=== PATIENT | female | born 1980 ===

== ENCOUNTER 2021-12-09 08:16 | Observation (INO) | payer OTHER, MEDICAID, SELFPAY ==
--- NOTE | 2021-12-09 08:20 | DI.RAD.S_ITS ---
PROCEDURE: XR CHEST 1V INDICATIONS: chest pain TECHNIQUE: One view of the chest was acquired. COMPARISON: None. FINDINGS: Surgical changes and devices: None. Lungs and pleura: Low lung volumes are noted. This causes a crowded appearance to the lung markings and limits evaluation. Generalized interstitial prominence can be seen. No pneumothorax or pleural effusions are seen. Mediastinum: Mediastinal contours appear normal. Heart size is normal. Bones and chest wall: No suspicious bony lesions. Overlying soft tissues appear unremarkable. IMPRESSION: Low lung volumes with mild generalized interstitial prominence. Differential diagnosis includes pulmonary edema or atypical/viral infiltrate. However, artifact from the low lung volumes is also possible. If clinically appropriate, a short-term followup chest series (with PA and lateral views) performed in deep inspiration is suggested for further evaluation. Dictated by: Rick Read M.D. on 12/09/2021 at 8:40 Approved by: Rick Read M.D. on 12/09/2021 at 8:41
[2021-12-09 08:25] VITALS: BP 168/94; PULSE 90; RESP 20; TEMP 36.8; O2SAT 98; BMI 42.0
[2021-12-09 08:54] LABS: Add Manual Diff / Slide Review NO; Basophils Absolute Auto 100 /uL (0-100); Basophils Percent Auto 0.6 % (0-2); Eosinophils Absolute Auto 300 /uL (0-450); Eosinophils Percent Auto 2.9 % (2-4); Hematocrit 43.6 % (36-46); Hemoglobin 14.6 g/dL (12.0-16.0); Lymphocytes Absolute Auto 2600 /uL (1100-4500); Lymphocytes Percent Auto 27.9 % (25-40); Mean Corpuscular HGB Conc 33.5 % (30-36); Mean Corpuscular Hemoglobin 28.1 PG (26-34); Mean Corpuscular Volume 83.6 fL (80-100); Monocytes Absolute Auto 700 /uL (0-900); Monocytes Percent Auto 7.2 % (3-14); Neutrophils Absolute Auto 5800 /uL (1500-7000); Neutrophils Percent Auto 61.4 % (50-75); Platelet Count 264 X10^3/uL (150-400); Red Blood Cell Count 5.21 X10^6/uL (4.0-5.2); White Blood Cell Count 9.4 X10^3/uL (4.5-11.0)
--- NOTE | 2021-12-09 08:54 | ED.CHESTPAIN ---
HPI - Chest Pain General Chief Complaint: Chest Pain Stated Complaint: Heart pains Time Seen by Provider: 12/09/21 08:36 Source: patient Mode of arrival: Ambulatory Limitations: no limitations History of Present Illness HPI narrative: Patient here for non reproducible left-sided chest pain that is sharp 10/10 lasting about 10-15 minutes at midnight last night. No complaints or discomfort at this time. Patient seen by her primary care doctor 2 days ago for the same complaint. Has not heard back because she is supposed to be scheduled for a stress echo test. Never had cardiac workup in the past. Ongoing symptoms for the past 2 years. Strong family history of coronary disease. Patient does smoke. Has history of hypertension and diabetes. Related Data Home Medications Medication Instructions Recorded Confirmed aspirin 81 mg tablet,delayed 81 mg DAILY 12/09/21 12/09/21 release atorvastatin 20 mg tablet 20 mg DAILY 12/09/21 12/09/21 glipizide 10 mg tablet 10 mg DAILY 12/09/21 12/09/21 insulin glargine 100 unit/mL (3 80 unit SUBCUT DAILY 12/09/21 12/09/21 mL) subcutaneous pen (Lantus Solostar U-100 Insulin) losartan 100 mg tablet 100 mg DAILY 12/09/21 12/09/21 meloxicam 15 mg tablet 15 mg DAILY 12/09/21 12/09/21 metformin 1,000 mg tablet 1,000 mg BID 12/09/21 12/09/21 omeprazole 20 mg capsule,delayed 20 mg DAILY 12/09/21 12/09/21 release Allergies Allergy/AdvReac Type Severity Reaction Status Date / Time No Known Drug Allergies Allergy Verified 12/09/21 08:38 Review of Systems Review of Systems Narrative: GENERAL: Denies chills, fatigue, malaise, fever, sweats. HEENT: Denies sinus pain, ear pain, sore throat RESPIRATORY: Denies dyspnea, cough CARDIOVASCULAR: Positive for chest pain, palpitations GASTROINTESTINAL: Denies nausea, vomiting, abdominal pain : Denies dysuria, frequency, hematuria MUSCULOSKELETAL: denies muscle or bony pain SKIN: Denies rash, skin lesions NEUROLOGIC: Denies weakness, numbness ROS Unobtainable: All systems reviewed & are unremarkable except as noted in HPI and below Patient History Social History household members: spouse and children Smoking Status: Current every day smoker Smoking Status: Current every day smoker alcohol intake frequency: holidays/special occasions only Substance Use Type: does not use Exam Narrative Exam Narrative: GENERAL: in no distress, not toxic not dyspneic HEAD: Normocephalic. EYES: Pupils equal round No scleral icterus. ENT: Mucous membranes moist. NECK: Trachea midline. CARDIOVASCULAR: Regular rate and rhythm without murmurs RESPIRATORY: Clear to auscultation. Breath sounds equal bilaterally. No wheezes, rales, or rhonchi. GASTROINTESTINAL: Abdomen soft, non-tender EXTREMITIES: No gross deformities. BACK: No flank tenderness. NEURO: AOx4. SKIN: Warm and dry PSYCH: Not anxious, is cooperative Initial Vital Signs Initial Vital Signs: Vital Signs Temperature 98.2 F 12/09/21 08:25 Pulse Rate 90 12/09/21 08:25 Respiratory Rate 20 12/09/21 08:25 Blood Pressure 168/94 H 12/09/21 08:25 Pulse Oximetry 98 12/09/21 08:25 Course Course Course Narrative: No new issues during course of stay Decision to Admit Date: 12/09/21 Decision to Admit time: 10:49 Orders Ordered: ED Orders 12/09/21 08:20 XR chest 1V Stat 12/09/21 08:30 EKG-12 Lead Stat 12/09/21 08:40 Complete Blood Count AUTO DIFF Stat Comprehensive Metabolic Panel Stat Lipase Stat Magnesium Stat Test Serum,Qual Stat Troponin & CK Cardiac Panel Stat 12/09/21 09:40 COVID19 -Nasal swab/Pre-Proc Stat 12/09/21 11:15 Trop I [Troponin I] Stat Aspirin (Aspirin Ec 81 Mg Tablet) 81 mg PO DAILY HARRY Atorvastatin Calcium (Atorvastatin 20 Mg Tablet) 40 mg PO DAILY PENDING SALE TO [facility] Dextrose (Dextrose 50 % In Water 25 Gm/50 Ml Syringe) 25 gm IV PRN PRN PRN Reason: Hypoglycemia Enoxaparin Sodium (Enoxaparin 40 Mg/0.4 Ml Syringe) 40 mg SUBCUT BID PENDING SALE TO [facility] Magnesium Sulfate (Magnesium Sulfate) 4 gm in 100 mls @ 25 mls/hr IV NOW ONE Stop: 12/09/21 18:09 Insulin Glargine (Insulin Glargine 100 Unit/Ml 3ml Pen) 60 unit SUBCUT DAILY PENDING SALE TO [facility] Insulin Human Lispro (Insulin Lispro 100 Unit/Ml 3ml Vial) 0 unit SUBCUT ACHS HARRY; Protocol Losartan Potassium (Losartan 50 Mg Tablet) 100 mg PO DAILY HARRY Pantoprazole Sodium (Pantoprazole Dr 20 Mg Tablet) 20 mg PO DAILY HARRY Discontinued Medications Aspirin (Aspirin 81 Mg Chew Tab) 324 mg PO NOW ONE Stop: 12/09/21 08:55 Last Admin: 12/09/21 09:41 Dose: 324 mg Documented by: KBROTEM Atorvastatin Calcium (Atorvastatin 20 Mg Tablet) 20 mg PO DAILY HARRY Insulin Glargine (Insulin Glargine 100 Unit/Ml 3ml Pen) 80 unit SUBCUT DAILY HARRY Reevaluation(s) Reevaluation #1: Reviewed patient results. Currently chest pain-free. Agrees for admit for stress test. Time: 10:49 Consultations Consultation #1: Spoke with hospitalist, Dr. Gu, will admit Time: 10:56 Vital Signs Vital signs: Vital Signs - 8 hr 12/09/21 08:25 Temperature 98.2 F Pulse Rate 90 Respiratory Rate 20 Blood Pressure 168/94 H Pulse Oximetry 98 MDM - Chest Pain Differential Diagnosis Differential diagnosis: Likely pneumothorax, stable angina, unstable angina pectoris, atypical chest pain, st elevation myocardial infarction and chest pain Lab Data Result diagrams: 12/09/21 08:40 12/09/21 08:40 Labs: Lab Results 12/09/21 12/09/21 12/09/21 Range/Units 08:40 08:40 08:40 WBC 9.4 (4.5-11.0) X10^3/uL RBC 5.21 H (4.0-5.2) X10^6/uL Hgb 14.6 (12.0-16.0) g/dL Hct 43.6 (36-46) % MCV 83.6 (80-100) fL MCH 28.1 (26-34) PG MCHC 33.5 (30-36) % RDW 13.0 (11.6-14.8) % Plt Count 264 (150-400) X10^3/uL Neut % (Auto) 61.4 (50-75) % Lymph % (Auto) 27.9 (25-40) % Hawkins % (Auto) 7.2 (3-14) % Eos % (Auto) 2.9 (2-4) % Baso % (Auto) 0.6 (0-2) % Neut # (Auto) 5800 (5848-9911) /uL Lymph # (Auto) 2600 (7116-1210) /uL Hawkins # (Auto) 700 (0-900) /uL Eos # (Auto) 300 (0-450) /uL Baso # (Auto) 100 (0-100) /uL Sodium 136 L (137-145) mmol/L Potassium 4.0 (3.4-5.1) mmol/L Chloride 102 (98-107) mmol/L Carbon Dioxide 26 (22-32) mmol/L BUN 14 (7-17) mg/dL Creatinine 0.37 L (0.52-1.04) mg/dL Estimated GFR > 60.0 (>60) mL/min BUN/Creatinine Ratio 37.8 H (6-22) Glucose 250 H (70-100) mg/dL Calcium 9.2 (8.4-10.2) mg/dL Magnesium 1.5 L (1.6-2.3) mg/dL Total Bilirubin 0.5 (0.2-1.3) mg/dL AST 17 (14-36) IU/L ALT 14 (<35) IU/L Alkaline Phosphatase 73 (38-126) U/L Total Creatine Kinase 48 (30-135) U/L CK-MB (CK-2) TNP CK-MB (CK-2) Rel Index TNP Troponin I < 0.012 (0.01-0.034) ng/mL Total Protein 7.5 (6.3-8.2) g/dL Albumin 4.4 (3.5-5.0) g/dL Globulin 3.1 (1.7-4.1) g/dL Albumin/Globulin Ratio 1.4 (1.0-2.8) Lipase 41 (23-300) U/L Serum , Qual Negative (Negative) SARS-CoV-2 (PCR) (Negative) 12/09/21 12/09/21 Range/Units 09:40 11:15 WBC (4.5-11.0) X10^3/uL RBC (4.0-5.2) X10^6/uL Hgb (12.0-16.0) g/dL Hct (36-46) % MCV (80-100) fL MCH (26-34) PG MCHC (30-36) % RDW (11.6-14.8) % Plt Count (150-400) X10^3/uL Neut % (Auto) (50-75) % Lymph % (Auto) (25-40) % Hawkins % (Auto) (3-14) % Eos % (Auto) (2-4) % Baso % (Auto) (0-2) % Neut # (Auto) (9282-3112) /uL Lymph # (Auto) (7778-3718) /uL Hawkins # (Auto) (0-900) /uL Eos # (Auto) (0-450) /uL Baso # (Auto) (0-100) /uL Sodium (137-145) mmol/L Potassium (3.4-5.1) mmol/L Chloride (98-107) mmol/L Carbon Dioxide (22-32) mmol/L BUN (7-17) mg/dL Creatinine (0.52-1.04) mg/dL Estimated GFR (>60) mL/min BUN/Creatinine Ratio (6-22) Glucose (70-100) mg/dL Calcium (8.4-10.2) mg/dL Magnesium (1.6-2.3) mg/dL Total Bilirubin (0.2-1.3) mg/dL AST (14-36) IU/L ALT (<35) IU/L Alkaline Phosphatase (38-126) U/L Total Creatine Kinase (30-135) U/L CK-MB (CK-2) CK-MB (CK-2) Rel Index Troponin I < 0.012 (0.01-0.034) ng/mL Total Protein (6.3-8.2) g/dL Albumin (3.5-5.0) g/dL Globulin (1.7-4.1) g/dL Albumin/Globulin Ratio (1.0-2.8) Lipase (23-300) U/L Serum , Qual (Negative) SARS-CoV-2 (PCR) Negative (Negative) Imaging Data Chest x-ray: Radiologist's Impression: [address] [address] XRay Report Signed Patient: Delmy Shukla MR#: [id number] : 1980 Acct:[id number] Age/Sex: 41 / F Date of Service: 12/09/21 Loc: ED Accession Number: [id number] ?? Procedure: XR chest 1V Ordering Provider: Ganga Alvarez MD PROCEDURE:? XR CHEST 1V ? INDICATIONS:? chest pain ? TECHNIQUE:? One view of the chest was acquired.? ? COMPARISON:? None. ? FINDINGS:? ? Surgical changes and devices:? None.? ? Lungs and pleura:? Low lung volumes are noted. This causes a crowded appearance to the lung markings and limits evaluation.? Generalized interstitial prominence can be seen. No pneumothorax or pleural effusions are seen. ? Mediastinum:? Mediastinal contours appear normal.? Heart size is normal.? ? Bones and chest wall:? No suspicious bony lesions.? Overlying soft tissues appear unremarkable.? ? ? IMPRESSION:? Low lung volumes with mild generalized interstitial prominence.? Differential diagnosis includes pulmonary edema or atypical/viral infiltrate.? However, artifact from the low lung volumes is also possible. ? If clinically appropriate, a short-term followup chest series (with PA and lateral views) performed in deep inspiration is suggested for further evaluation.? Dictated by: Rick Read M.D. on 12/09/2021 at 8:40 ? ? Approved by: Rick Read M.D. on 12/09/2021 at 8:41 ? ECG Data Interpretation: Normal sinus rhythm rate [address] elevation or depression MDM Narrative Medical decision making narrative: Appropriate for admission. Patient has had increased frequency of left-sided chest pain. Patient is diabetic with high blood pressure as well as is a smoker with family history of coronary disease. Has seen family doctor 2 days ago and has not received schedule for her stress test. Discharge Plan Departure Patient Disposition: Admitted as Observation Clinical Impression: Chest pain Admit Date/Time: 12/09/21 11:15 Admit Provider: Phu Gu
[2021-12-09 09:04] LABS: Alanine Aminotransferase 14 IU/L (<35); Albumin 4.4 g/dL (3.5-5.0); Albumin Globulin Ratio 1.4 (1.0-2.8); Alkaline Phosphatase 73 U/L (38-126); Aspartate Aminotransferase 17 IU/L (14-36); BUN Creatinine Ratio 37.8 (6-22); Bilirubin Total 0.5 mg/dL (0.2-1.3); Blood Urea Nitrogen 14 mg/dL (7-17); Calcium 9.2 mg/dL (8.4-10.2); Carbon Dioxide 26 mmol/L (22-32); Chloride 102 mmol/L (98-107); Creatine Kinase 48 U/L (30-135); Estimated Glomerular Filt Rate > 60.0 mL/min (>60); Globulin 3.1 g/dL (1.7-4.1); Glucose 250 mg/dL (70-100); HEMOLYSIS < 15 (0-50); Lipase 41 U/L (23-300); Magnesium 1.5 mg/dL (1.6-2.3); Sodium 136 mmol/L (137-145); Total Protein 7.5 g/dL (6.3-8.2)
[2021-12-09 09:16] LABS: Troponin I < 0.012 ng/mL (0.01-0.034)
[2021-12-09 09:40] LABS: Pregnancy Test Serum,Qual Negative (Negative)
[2021-12-09] MEDS: ASPIRIN 81 MG CHEW TAB 324 MG PO (09:41)
[2021-12-09 10:22] LABS: COVID19 -Nasal RAPID Negative (Negative)
[2021-12-09 11:57] LABS: Troponin I < 0.012 ng/mL (0.01-0.034)
[2021-12-09 12:27] VITALS: BMI 41.8
--- NOTE | 2021-12-09 13:14 | PC.NURSE ---
Patient arrived to AC via wheelchair with Charge Nurse assist. MD aware patient has arrived. VSS. Lungs CTA RA, patient denies chest pain at this time, denies SOB. Tele on. ICU aware. Patient denies dizziness, lightheadedness or severe headache. Reports intermittent headache that has subsided with ASA given in the ER. Patients CBG 188. Patient remains NPO, awaiting MD orders. Patient instructed to call before getting OOB. Agreeable to plan. Call light and belongings in reach. Patient denies further needs at this time.
--- NOTE | 2021-12-09 14:15 | PM.HP.1 ---
History of Present Illness History of Present Illness Chief complaint: Heart pains Narrative: 41yo female with a hx of hypertension, insulin-dependent DM II, chronic tobacco smoking history and family hx of premature CAD that presents with chest pain. The patient states this has been intermittent for at least 1 year. She has been working with her PCP to arrange outpatient echo with stress test. However, she's been having insurance issues, complicating scheduling. This presenting CP started last night. She reports she was having an emotional argument with her about finances when this started. It lasted for approximately 10 minutes. She describes it as a sharp, stabbing pain. She localizes it to the left chest wall. She denies this occurs with rest. She does not endorse radiation of the pain to her left arm or jaw. She denies paresthesias, n/v at the time, diaphoresis, back pain, SOB, palpitations, or feeling faint. She reports going to sleep afterward without difficulty. However, this morning, when she was driving to work, she felt the same CP again, also after an argument with her . This is when she decided to drive to the ER. The patient denies any recent trauma to the chest or falls. She denies any recent URI. Denies any hx of VTE/PE or of recent long distance travel. The patient was diagnosed with DM II 5 years ago. She has been on insulin therapy for approximately 1 year. She has been smoking 0.5 ppd tobacco since age 16. Denies any illicit drug use, or EtOH use. Family hx is positive for brother who had a heart attack at age 40. Mother and father both had DM II and hypertension. PSH is unremarkable. She does not endorse knowing of any medicine allergies. She works as a caregiver nearby. She lives with her . Patient History Family & Social History Social History: household members spouse,children Prior Living Arrangements House Safety & Behavioral: Feels Safe in Current Yes Environment Been Physically Hurt or No Threatened By a Person Suicidal Ideation Description None Suicide Plan Description No Plan Tobacco & Substance use: Tobacco type cigarettes Smoking Status Current every day smoker alcohol intake frequency holiday/special occasion Substance Use Type does not use Meds Home Medications and Allergies Home Medications Medication Instructions Recorded Confirmed Type aspirin 81 mg tablet,delayed 81 mg DAILY 12/09/21 12/09/21 History release atorvastatin 20 mg tablet 20 mg DAILY 12/09/21 12/09/21 History glipizide 10 mg tablet 10 mg DAILY 12/09/21 12/09/21 History insulin glargine 100 unit/mL (3 80 unit SUBCUT DAILY 12/09/21 12/09/21 History mL) subcutaneous pen (Lantus Solostar U-100 Insulin) losartan 100 mg tablet 100 mg DAILY 12/09/21 12/09/21 History meloxicam 15 mg tablet 15 mg DAILY 12/09/21 12/09/21 History metformin 1,000 mg tablet 1,000 mg BID 12/09/21 12/09/21 History omeprazole 20 mg capsule,delayed 20 mg DAILY 12/09/21 12/09/21 History release Allergies Allergy/AdvReac Type Severity Reaction Status Date / Time No Known Drug Allergies Allergy Verified 12/09/21 08:38 Review of Systems Constitutional Comments: Denies fever/chills, night sweats, weight loss Eyes Comments: Denies vision changes, blurred vision Cardiovascular Comments: Endorses CP. Denies SOB, palpitations, leg edema Respiratory Comments: Denies cough, SOB, wheezing Gastrointestinal Comments: Denies abd pain, n/v/d Integumentary/Breasts Comments: Denies new skin changes Exam Vital Signs (past 8 hours): - 12/09/21 08:25 Temperature 98.2 F Pulse Rate 90 Respiratory Rate 20 Blood Pressure 168/94 H Pulse Oximetry 98 Oxygen Delivery Method Room Air Const Other: Patient sitting up in bed comfortably upon my entering the room, in no apparent acute distress, asking for lunch Eyes Other: No scleral icterus appreciated Neck Other: No carotid bruits noted Chest Other: Chest pain reproducible on left chest wall palpation Resp Other: Lungs clear to auscultation bilaterally Cardio Other: RRR, S1 and S2 heart sounds normal, with no extra heart sounds or murmurs appreciated, no peripheral edema GI Other: Soft, non-distended, non-tender, bowel sounds present Skin Other: No grossly abnormal skin lesions noted Extrem Other: Palpable dorsalis pedis pulses bilaterally Objective Labs Result Diagrams: 12/09/21 08:40 12/09/21 08:40 Labs: Laboratory Results - last 24 hr 12/09/21 12/09/21 12/09/21 08:40 08:40 08:40 WBC 9.4 RBC 5.21 H Hgb 14.6 Hct 43.6 MCV 83.6 MCH 28.1 MCHC 33.5 RDW 13.0 Plt Count 264 Neut % (Auto) 61.4 Lymph % (Auto) 27.9 Reynolds % (Auto) 7.2 Eos % (Auto) 2.9 Baso % (Auto) 0.6 Neut # (Auto) 5800 Lymph # (Auto) 2600 Reynolds # (Auto) 700 Eos # (Auto) 300 Baso # (Auto) 100 Sodium 136 L Potassium 4.0 Chloride 102 Carbon Dioxide 26 BUN 14 Creatinine 0.37 L Estimated GFR > 60.0 BUN/Creatinine Ratio 37.8 H Glucose 250 H Calcium 9.2 Magnesium 1.5 L Total Bilirubin 0.5 AST 17 ALT 14 Alkaline Phosphatase 73 Total Creatine Kinase 48 CK-MB (CK-2) TNP CK-MB (CK-2) Rel Index TNP Troponin I < 0.012 Total Protein 7.5 Albumin 4.4 Globulin 3.1 Albumin/Globulin Ratio 1.4 Lipase 41 Serum , Qual Negative SARS-CoV-2 (PCR) 12/09/21 12/09/21 09:40 11:15 WBC RBC Hgb Hct MCV MCH MCHC RDW Plt Count Neut % (Auto) Lymph % (Auto) Reynolds % (Auto) Eos % (Auto) Baso % (Auto) Neut # (Auto) Lymph # (Auto) Reynolds # (Auto) Eos # (Auto) Baso # (Auto) Sodium Potassium Chloride Carbon Dioxide BUN Creatinine Estimated GFR BUN/Creatinine Ratio Glucose Calcium Magnesium Total Bilirubin AST ALT Alkaline Phosphatase Total Creatine Kinase CK-MB (CK-2) CK-MB (CK-2) Rel Index Troponin I < 0.012 Total Protein Albumin Globulin Albumin/Globulin Ratio Lipase Serum , Qual SARS-CoV-2 (PCR) Negative Assessment & Plan Assessment & Plan narrative: Assessment: 1. Stable angina 2. Insulin-dependent DM II 3. Hypertension 4. Chronic tobacco smoker 5. Obesity, class 3 6. Hypomagnesemia Plan: 1. EKG, troponin three-times unremarkable. However, patient with significant risk factors for obstructive CAD. Therefore, echocardiogram and pharmacologic stress test ordered. Risk stratification with A1c, lipid panel, TSH. 2. Will give home glargine at 60 units today, as patient did not take insulin this morning. Will give regular home dose of glargine 80 units in the morning starting tomorrow. High-intensity sliding scale. 3. Will resume home losartan 100 mg daily. 4. Will hold off on nicotine patch for now as this might confound stress test results. 5. This is adversely affecting all of the patient's comorbidities. Counseling provided. 6. Unclear etiology as of now, and will replenish. VTE prophylaxis: Lovenox 40 mg daily Code: Full I have utilized all available immediate resources to obtain, update, or review the patient's current medications. Time Spent With Patient Critical Care time: I spent a total of [] minutes of critical care time on this patient's care today; this time is exclusive of procedural time. Quality MIPS - Admit I confirm the patient?s Advance Care Plan is present, Code status is documented, Surrogate decision maker is in patient?s record [If Yes, STOP here]: Yes
[2021-12-09 14:46] VITALS: BP 137/89; PULSE 76; RESP 20; TEMP 36.7; O2SAT 97
[2021-12-09] MEDS: ATORVASTATIN 20 MG TABLET 40 MG PO (15:03)
[2021-12-09] MEDS: MAGNESIUM SULFATE 4 GM/100 ML PIGGYBACK IV (15:03)
[2021-12-09] MEDS: ASPIRIN EC 81 MG TABLET PO (15:03)
[2021-12-09] MEDS: INSULIN GLARGINE 100 UNIT/ML 3ML PEN 60 UNIT SUBCUT (15:04)
[2021-12-09 15:05] VITALS: BP 137/89; PULSE 76
[2021-12-09] MEDS: LOSARTAN 50 MG TABLET 100 MG PO (15:05)
[2021-12-09] MEDS: PANTOPRAZOLE DR 20 MG TABLET PO (15:05)
[2021-12-09] MEDS: INSULIN LISPRO 100 UNIT/ML 3ML VIAL SUBCUT ×2 (17:07→21:08)
[2021-12-09 17:43] LABS: Troponin I < 0.012 ng/mL (0.01-0.034)
[2021-12-09 19:00] VITALS: O2SAT 97
[2021-12-09 19:55] VITALS: PULSE 76; RESP 16; O2SAT 97
[2021-12-09 20:50] VITALS: BP 124/74; PULSE 73; RESP 14; TEMP 36.4; O2SAT 99
[2021-12-10] VITALS (7 sets, daily range): BP systolic 106–123; BP diastolic 60–89; PULSE 75–86; RESP 14–18; TEMP 36.4–36.8; O2SAT 96–99
[2021-12-10 05:55] LABS: Hemoglobin A1C% w Est Avg Glu 12.3 % (4.0-6.0)
[2021-12-10 06:01] LABS: BUN Creatinine Ratio 47.1 (6-22); Blood Urea Nitrogen 16 mg/dL (7-17); Calcium 8.6 mg/dL (8.4-10.2); Carbon Dioxide 27 mmol/L (22-32); Chloride 103 mmol/L (98-107); Cholesterol 183 mg/dL (140-199); Estimated Glomerular Filt Rate > 60.0 mL/min (>60); Glucose 198 mg/dL (70-100); HDL Cholesterol 33 mg/dL (40-60); HEMOLYSIS < 15 (0-50); LDL Cholesterol Calculated 99 mg/dL (<100); Magnesium 1.8 mg/dL (1.6-2.3); Potassium 3.9 mmol/L (3.4-5.1); Sodium 137 mmol/L (137-145); Triglycerides 256 mg/dL (35-150)
[2021-12-10 06:31] LABS: TSH w/ Reflex to FT4 1.25 uIU/mL (0.47-4.68)
--- NOTE | 2021-12-10 07:04 | PC.NURSE ---
no chest pain or discomfort thru the NOC. NPO since midnight. ok from Dr wong for patient to remove tele in order to shower. patient declined to shower as she wants to take a long shower.
[2021-12-10] MEDS: LOSARTAN 50 MG TABLET 100 MG PO (08:39)
[2021-12-10] MEDS: ATORVASTATIN 20 MG TABLET 40 MG PO (08:39)
[2021-12-10] MEDS: PANTOPRAZOLE DR 20 MG TABLET PO (08:39)
[2021-12-10] MEDS: ASPIRIN EC 81 MG TABLET PO (08:39)
[2021-12-10] MEDS: ACETAMINOPHEN 325 MG TABLET 650 MG PO (08:40)
[2021-12-10] MEDS: ENOXAPARIN 40 MG/0.4 ML SYRINGE SUBCUT (08:40)
[2021-12-10] MEDS: INSULIN GLARGINE 100 UNIT/ML 3ML PEN 60 UNIT SUBCUT (08:42)
--- NOTE | 2021-12-10 09:58 | PC.NURSE ---
Day shift: Pt off unit for stress test at approx 0930.
--- NOTE | 2021-12-10 10:22 | PC.NURSE ---
Day shift: Pt back from 1st part of stress test at approx 1020. Denies any chest pain. OK to have water but no food yet. Back on tele. Second part of test planned for 1230 today.
--- NOTE | 2021-12-10 12:44 | PC.NURSE ---
Day shift: Pt off unit for 2nd part of stress test. SHINGLE CATCHER notified about being off tele.
--- NOTE | 2021-12-10 13:09 | PM.TREADMILL ---
Cardiac Stress Test Report Referral & Results Indication: chest pain Rest ECG: sinus rhythm Procedure Note: walking andrei Impression: AFTER ANDREI INJ HAD MINIMAL DYPSNEA, NO CHEST DISCOMFORT, BASELINE ECG SINUS RHYTHM; NO SIGNIFICANT ST CHANGES AFTER ANDREI INJ COMPARED TO BASELINE. NO AMINOPH NEEDED. MIBI SCAN PENDING. FIELD COORDINATOR TO REVIEW. .SARITHA NOEL Please note: Actual ECG tracings can be found in the PACS system.
--- NOTE | 2021-12-10 15:12 | CM.DANOTE ---
DCP Brief Assessment Note Patient is a 41 yo female who was admitted on 12/09/21 for Heart Pains. Pt has [employer] and [employer] for insurance and her PCP is Qian Ronquillo. EMR was reviewed. Per MD, pt with hx of diabetes, hypertension, and smokes tobacco at baseline and admitted for Chest Pain r/o. Stress test and Echo ordered and pending results. Per RN, pt has completed both parts of stress test and now awaiting results to be read. No concerns at this time. Pt lives with spouse and family in [place] and mentioned to staff triggering stress of financial state prior to chest pains. Pt independent at baseline. No bedside assessment completed yet today due to triage needs. Plan: SW to follow tomorrow if pt remains in the hospital overnight for d/c planning needs although anticipates likely d/c home tonight pending test results. RUSS De Santiago
[2021-12-10] MEDS: INSULIN LISPRO 100 UNIT/ML 3ML VIAL SUBCUT (16:47)
--- NOTE | 2021-12-10 18:38 | DI.NM.S_ITS ---
DATE OF SERVICE: 12/10/2021 PROCEDURE PERFORMED: Pharmacological perfusion study. INDICATION: Chest pain with underlying diabetes mellitus, hypertension and smoking. RADIOPHARMACEUTICAL: 27.3 millicurie technetium-99m Myoview IV was injected at stress and 11.6 millicurie technetium-99m Myoview IV was injected at rest. CARDIAC STRESS: The patient underwent IV Lexiscan perfusion study under the supervision of an attending staff using standard protocol. The patient remained hemodynamically stable. No chest discomfort. Had minimal dyspnea. Baseline rhythm was sinus. During stress, some nonspecific ST changes, including flattening of inferolateral leads seen. No significant arrhythmias seen. RAW DATA: Breast shadow, as well as increased diaphragmatic shadow seen. There was a hot spot near the inferior border of the heart. GATED STUDY: Resting LV ejection fraction 69 and stress LV ejection fraction is 74 percent without any obvious wall motion abnormalities. Resting end-diastolic volume 116 mL. TID ratio 0.92, which is within normal limits. Lung/heart ratio 0.22, which is within normal limits. MYOCARDIAL PERFUSION SCAN: Stress supine, resting supine and stress prone images were compared to each other. Stress supine and resting supine images revealed moderate-size, moderately decreased perfusion of anterior wall, apex, as well as inferior wall, which got significantly improved during the stress prone images. Stress prone images revealed normal myocardial perfusion. CONCLUSION: This is a normal myocardial perfusion study with evidence of breast tissue attenuation, as well as diaphragmatic tissue attenuation artifact, which got resolved during stress prone images. Preserved left ventricular function. No significant arrhythmias seen. Overall low-risk myocardial perfusion scan. Delmy Shukla - Ben/johnny doc#: [id number]/job#: [id number] dd: 12/10/2021 17:19:00 dt: 12/10/2021 18:22:00 DICTATING MD/COPIES TO: Ksenia Man MD COPIES MNE: TANIA;
--- NOTE | 2021-12-10 18:57 | P.DS_ITS ---
History of Present Illness History of Present Illness Chief complaint: Heart pains Narrative: 41yo female with a hx of hypertension, insulin-dependent DM II, chronic tobacco smoking history and family hx of premature CAD that presents with chest pain. The patient states this has been intermittent for at least 1 year. She has been working with her PCP to arrange outpatient echo with stress test. However, she's been having insurance issues, complicating scheduling. This presenting CP started last night. She reports she was having an emotional argument with her about finances when this started. It lasted for approximately 10 minutes. She describes it as a sharp, stabbing pain. She localizes it to the left chest wall. She denies this occurs with rest. She does not endorse radiation of the pain to her left arm or jaw. She denies paresthesias, n/v at the time, diaphoresis, back pain, SOB, palpitations, or feeling faint. She reports going to sleep afterward without difficulty. However, this morning, when she was driving to work, she felt the same CP again, also after an argument with her . This is when she decided to drive to the ER. The patient denies any recent trauma to the chest or falls. She denies any recent URI. Denies any hx of VTE/PE or of recent long distance travel. The patient was diagnosed with DM II 5 years ago. She has been on insulin therapy for approximately 1 year. She has been smoking 0.5 ppd tobacco since age 16. Denies any illicit drug use, or EtOH use. Family hx is positive for brother who had a heart attack at age 40. Mother and father both had DM II and hypertension. PSH is unremarkable. She does not endorse knowing of any medicine allergies. She works as a caregiver nearby. She lives with her . Discharge Providers Provider Date of admission: 12/09/21 11:15 Discharge Date: 12/10/21 Primary care physician: Qian Ronquillo DO Discharge provider: Marcus Spencer MD Summary Hospital Course Discharge Diagnosis: 1. Atypical chest pain 2. Diabetes insulin requiring 3. History of hypertension 4. Hyperlipidemia/dyslipidemia 5. Cigarette nicotine dependency Patient was evaluated for atypical chest pain. She had negative cardiac enzymes. Her nuclear stress test imaging was read as normal. Patient is advised to quit smoking, start regular exercise, try to lose weight and work with PCP on her diabetes control. Her A1c is 12.3%, poor control. Cholesterol appears adequately controlled on statin therapy with LDL 99. Thyroid was normal. She has had significant stress and likely source of chest pain is anxi ety versus acid reflux. She is already on omeprazole. Status at Discharge Cognitive/behavioral status at discharge: oriented Functional status at discharge: independent ambulation Overall status at discharge: patient is back to baseline Exam Vital Signs (past 8 hours): - 12/10/21 11:22 12/10/21 12:20 12/10/21 15:50 Temperature 97.6 F 98.2 F Pulse Rate 77 86 Respiratory Rate 16 18 Blood Pressure 113/76 106/60 Pulse Oximetry 97 99 96 Oxygen Delivery Method Room Air Oxygen Flow Rate 0 Narrative Exam Narrative: General: Alert patient who is comfortable Lungs: Breathing nonlabored Objective Labs Result Diagrams: 12/09/21 08:40 12/10/21 05:27 Labs: Laboratory Results - last 24 hr 12/10/21 12/10/21 12/10/21 05:27 05:27 05:27 Sodium 137 Potassium 3.9 Chloride 103 Carbon Dioxide 27 BUN 16 Creatinine 0.34 L Estimated GFR > 60.0 BUN/Creatinine Ratio 47.1 H Glucose 198 H Hemoglobin A1c 12.3 H Calcium 8.6 Magnesium 1.8 Triglycerides 256 H Cholesterol 183 LDL Cholesterol, Calc 99 HDL Cholesterol 33 L TSH 1.25 PFSH Social History household members: spouse and children Smoking Status: Current every day smoker Discharge Plan Discharge Plan Patient Disposition: Home Provider Discharge Comment: Your nuclear stress test was normal. I do not think your chest pain is heart related, maybe stress or anxiety or acid reflux. You have major risk factors for heart disease that can affect you in the future (family history, smoking, diabetes, overweight). Stop smoking, please! It is bad for your heart and can cause cancer. Start doing some walking 30 minutes a day for exercise. It will get easier and more enjoyable as you get in to the habit of it. Work with your provider to get diabetes under better control (your A1c is 12.3, very high). Discharge orders & Medications Prescriptions: Continued aspirin 81 mg tablet,delayed release (DR/EC) 81 mg DAILY 0RF atorvastatin 20 mg tablet 20 mg DAILY 0RF Label Comments: Take 1 tablet by mouth every evening glipizide 10 mg tablet 10 mg DAILY 0RF Lantus Solostar U-100 Insulin 100 unit/mL (3 mL) insulin pen 80 unit SUBCUT DAILY 0RF Rx Instructions: 80 Units before sleep losartan 100 mg tablet 100 mg DAILY 0RF Label Comments: Take 1 tablet by mouth once a day meloxicam 15 mg tablet 15 mg DAILY 0RF metformin 1,000 mg tablet 1,000 mg BID 0RF Label Comments: Take 1 tablet by mouth twice a day omeprazole 20 mg capsule,delayed release(DR/EC) 20 mg DAILY 0RF Follow up/Referrals: Qian Ronquillo DO [Primary Care Provider] - Diet/Activity/Treatments Diet: Carb-consistent/Diabetic Visit Report/Discharge Packet Instructions: DI for Chest Pain Discharge Data Primary Care Provider: Qian Ronquillo Attending Provider: Phu Gu
--- NOTE | 2021-12-21 09:58 | PC.NURSE ---
Late Entry; Magnesium infusion initiated 12/09 at 1503 complete at 1904.
== END 2021-12-10 19:14 | disposition home or self-care (01) ==
LOC: ED 10:50 → AC 11:17
PROVIDERS: Admitting Provider Student in an Organized Health Care Education/Training Program; Emergency Provider Emergency Medicine; PCP Family Medicine; Referring Provider Emergency Medicine; Visit Provider Student in an Organized Health Care Education/Training Program
DX: R07.9 Chest pain, unspecified (principal); F17.210 Nicotine dependence, cigarettes, uncomplicated; I10 Essential (primary) hypertension; E11.9 Type 2 diabetes mellitus without complications; Z79.84 Long term (current) use of oral hypoglycemic drugs; Z79.4 Long term (current) use of insulin; E83.42 Hypomagnesemia; E66.9 Obesity, unspecified; Z20.822 Contact with and (suspected) exposure to COVID-19
CPT/HCPCS: 36415; 71045; 78452; 80048; 80053; 80061; 82550; 82962; 83036; 83690; 83735; 84443; 84484; 84703; 85025; 87635; 93005; 93017; 94760; 96365; 96366; 96372; 99284; C9803; G0378; A9502; J1650; J1815; J2785; J3475